=== PATIENT | female | born 1940 | race Caucasian/White ===

== ENCOUNTER 2022-07-03 16:07 | Inpatient (IN) | payer BC, MEDICAID ==
[~2022-07-03] VITALS: Ht 172.7 cm; Wt 96.6 kg
[2022-07-03 16:12] VITALS: BP_SYST 133
[2022-07-03] MEDS ORDERED: KETOROLAC TROMETHAMINE 30 MG VIAL IVP ONE (17:15)
[2022-07-03 17:20] LABS: MEAN CORPUSCULAR HEMOGLOBIN 21 pg (27-31); MEAN CORPUSCULAR HGB CONC 32 % (32-36); MEAN CORPUSCULAR VOLUME 65 fL (79.0-98.0); PLATELET COUNT (AUTO) 352 K/uL (130-430); RED BLOOD CELL COUNT(AUTO) 3.18 MIL/uL (4.2-6.2); RED CELL DISTRIBUTION WIDTH 17.1 % (9.0-15.0); WHITE BLOOD COUNT (AUTO) 7.4 K/uL (4.8-10.8)
[2022-07-03 17:23] LABS: HEMATOCRIT 20.6 % (36-48); HEMOGLOBIN 6.6 g/dL (12.0-16.0)
[2022-07-03] MEDS ORDERED: NICOTINE 14 MG/24 HR PATCH.TD24 TD SCH (17:30)
[2022-07-03 17:42] LABS: ALANINE AMINOTRANSFERASE 11 U/L (12-78); ANION GAP 10 (5-15); ASPARTATE AMINOTRANSFERASE 19 U/L (10-37); CHLORIDE 94 mmol/L (98-107); CREATININE 0.94 mg/dL (0.55-1.30); EOSINOPHILS % (MANUAL) 2 % (0-7); GLUCOSE 115 mg/dL (70-99); LYMPHOCYTES % (MANUAL) 15 % (20-46); MONOCYTES % (MANUAL) 7 % (0-11); TOTAL BILIRUBIN 0.5 mg/dL (0.0-1.0); UREA NITROGEN, BLOOD 11 mg/dL (8-21)
[2022-07-03] MEDS ORDERED: NICOTINE 14 MG/24 HR PATCH.TD24 TD ONE (17:45)
[2022-07-03] MEDS ORDERED: LEVO25TA7 PO (19:34)
[2022-07-03] MEDS ORDERED: TRAM50TA2 PO (19:34)
[2022-07-03] MEDS ORDERED: ISOS30TA85 PO (19:39)
[2022-07-03] MEDS ORDERED: BENA-6 PO (19:39)
[2022-07-03] MEDS ORDERED: LEVO50TA8 PO (19:39)
[2022-07-03] MEDS ORDERED: PANT40TA45 PO (19:39)
[2022-07-03] MEDS ORDERED: TEMA15CA PO (19:39)
[2022-07-03 21:58] VITALS: BP_SYST 131
[2022-07-03] MEDS ORDERED: CARVEDILOL 3.125 MG TABLET (COREG) PO ONE (22:18)
[2022-07-04] MEDS ORDERED: ACETAMINOPHEN 325 MG TABLET PO ONE (00:15)
[2022-07-04] MEDS ORDERED: DIPHENHYDRAMINE INJ 50 MG/ML VIAL IVP ONE (00:15)
[2022-07-04 07:27] LABS: BASOPHILS # (AUTO) 0.1 K/uL (0.0-0.2); BASOPHILS % (AUTO) 0.9 % (0.0-2.0); EOSINOPHILS # (AUTO) 0.1 K/uL (0.0-0.4); EOSINOPHILS % (AUTO) 1.2 % (0.0-4.0); HEMATOCRIT 26.4 % (36-48); HEMOGLOBIN 8.3 g/dL (12.0-16.0); LYMPHOCYTES # (AUTO) 0.6 K/uL (1.0-5.5); LYMPHOCYTES % (AUTO) 9.2 % (20.5-51.5); MEAN CORPUSCULAR HEMOGLOBIN 21 pg (27-31); MEAN CORPUSCULAR HGB CONC 31 % (32-36); MEAN CORPUSCULAR VOLUME 68 fL (79.0-98.0); MONOCYTES # (AUTO) 0.7 K/uL (0.0-1.0); NEUTROPHILS # (AUTO) 5.4 K/uL (1.8-7.7); NEUTROPHILS % (AUTO) 78.7 % (40.0-70.0); PLATELET COUNT (AUTO) 316 K/uL (130-430); RED BLOOD CELL COUNT(AUTO) 3.86 MIL/uL (4.2-6.2); RED CELL DISTRIBUTION WIDTH 18.6 % (9.0-15.0)
[2022-07-04 07:44] LABS: WHITE BLOOD COUNT (AUTO) 6.9 K/uL (4.8-10.8)
[2022-07-04 07:45] LABS: ALANINE AMINOTRANSFERASE 11 U/L (12-78); ALBUMIN 3.1 g/dL (3.4-4.8); ANION GAP 9 (5-15); ASPARTATE AMINOTRANSFERASE 22 U/L (10-37); CALCIUM 8.1 mg/dL (8.4-11.0); CHLORIDE 95 mmol/L (98-107); CREATININE 1.09 mg/dL (0.55-1.30); GLUCOSE 120 mg/dL (70-99); UREA NITROGEN, BLOOD 15 mg/dL (8-21)
[2022-07-04 07:59] VITALS: BP_SYST 136
[2022-07-04] MEDS ORDERED: CARVEDILOL 3.125 MG TABLET (COREG) PO SCH (09:00)
[2022-07-04] MEDS: KETOROLAC TROMETHAMINE 15 MG VIAL IVP PRN (10:27)
[2022-07-04 12:00] VITALS: BP_SYST 131
[2022-07-04] MEDS: traMADol HCL HCL 50 MG TABLET (ULTRAM) PO PRN (15:12)
[2022-07-04] MEDS ORDERED: LORazepam 2 MG/ML VIAL IVP ONE (15:15)
[2022-07-04 18:22] VITALS: BP_SYST 127
[2022-07-04] MEDS ORDERED: ONDANSETRON HCL 4 MG/2 ML VIAL ONE (18:22)
[2022-07-04] MEDS: TEMAZEPAM 15 MG CAPSULE PO PRN (18:27)
[2022-07-04 20:30] VITALS: BP_SYST 120
[2022-07-04] MEDS: PREGABALIN 25 MG CAPSULE (LYRICA) PO SCH (20:55)
[2022-07-04] MEDS: METOPROLOL TARTRATE 25 MG TABLET PO SCH (20:56)
[2022-07-05 01:39] VITALS: BP_SYST 130
[2022-07-05] MEDS: traMADol HCL HCL 50 MG TABLET (ULTRAM) PO PRN ×2 (05:30→20:41)
[2022-07-05] MEDS: LEVOTHYROXINE SODIUM 0.05 MG TABLET PO SCH (06:41)
[2022-07-05 07:02] LABS: BASOPHILS # (AUTO) 0.1 K/uL (0.0-0.2); BASOPHILS % (AUTO) 1.1 % (0.0-2.0); EOSINOPHILS # (AUTO) 0.1 K/uL (0.0-0.4); EOSINOPHILS % (AUTO) 0.8 % (0.0-4.0); HEMOGLOBIN 7.8 g/dL (12.0-16.0); LYMPHOCYTES # (AUTO) 0.9 K/uL (1.0-5.5); LYMPHOCYTES % (AUTO) 12.2 % (20.5-51.5); MEAN CORPUSCULAR HEMOGLOBIN 21 pg (27-31); MEAN CORPUSCULAR HGB CONC 31 % (32-36); MEAN CORPUSCULAR VOLUME 68 fL (79.0-98.0); MONOCYTES # (AUTO) 0.8 K/uL (0.0-1.0); NEUTROPHILS # (AUTO) 5.6 K/uL (1.8-7.7); NEUTROPHILS % (AUTO) 74.9 % (40.0-70.0); PLATELET COUNT (AUTO) 333 K/uL (130-430); RED BLOOD CELL COUNT(AUTO) 3.68 MIL/uL (4.2-6.2); RED CELL DISTRIBUTION WIDTH 19.1 % (9.0-15.0); WHITE BLOOD COUNT (AUTO) 7.5 K/uL (4.8-10.8)
[2022-07-05 07:21] LABS: ANION GAP 9 (5-15); CALCIUM 8.3 mg/dL (8.4-11.0); CHLORIDE 94 mmol/L (98-107); CREATININE 1.13 mg/dL (0.55-1.30); GLUCOSE 103 mg/dL (70-99); UREA NITROGEN, BLOOD 21 mg/dL (8-21)
[2022-07-05 07:49] LABS: TOTAL IRON BIND. CAPACITY 370 ug/dL (250-450)
[2022-07-05] MEDS: DULoxetine HCL 20 MG CAPSULE.DR PO SCH (09:00)
[2022-07-05] MEDS ORDERED: BENAZEPRIL HCL 20 MG TABLET (LOTENSIN) PO SCH (09:00)
[2022-07-05 09:02] VITALS: BP_SYST 127
[2022-07-05] MEDS: ISOSORBIDE MONONITRATE 30 MG TAB.ER.24H PO SCH (10:00)
[2022-07-05] MEDS: METOPROLOL TARTRATE 25 MG TABLET PO SCH ×2 (10:01→20:40)
[2022-07-05] MEDS: PANTOPRAZOLE SODIUM 40 MG TAB PO SCH (10:10)
[2022-07-05] MEDS: LISINOPRIL 10 MG TABLET (PRINIVIL) PO SCH (10:11)
[2022-07-05] MEDS: PREGABALIN 25 MG CAPSULE (LYRICA) PO SCH ×2 (10:12→20:43)
[2022-07-05] MEDS: traMADol HCL HCL 50 MG TABLET (ULTRAM) PO SCH (10:13)
[2022-07-05 11:26] VITALS: BP_SYST 106
[2022-07-05] MEDS: SOD FERRIC GLUC COMPLEX/SUC 125 MG in NS 100 ML IV SCH (14:27)
[2022-07-05 16:59] VITALS: BP_SYST 122
[2022-07-05] MEDS ORDERED: NICOTINE 14 MG/24 HR PATCH.TD24 TD ONE (19:30)
[2022-07-05 20:00] VITALS: BP_SYST 136
[2022-07-05] MEDS: ONDANSETRON HCL 4 MG/2 ML VIAL IVP PRN (22:25)
[2022-07-05] MEDS: LORazepam 2 MG/ML VIAL IVP PRN (22:31)
[2022-07-06] VITALS: BP_SYST 120
[2022-07-06] MEDS: LEVOTHYROXINE SODIUM 0.05 MG TABLET PO SCH (04:00)
[2022-07-06] MEDS: KETOROLAC TROMETHAMINE 15 MG VIAL IVP PRN ×3 (05:03→21:40)
[2022-07-06 07:55] LABS: BASOPHILS # (AUTO) 0.1 K/uL (0.0-0.2); BASOPHILS % (AUTO) 0.6 % (0.0-2.0); EOSINOPHILS % (AUTO) 0.2 % (0.0-4.0); HEMOGLOBIN 8.1 g/dL (12.0-16.0); LYMPHOCYTES # (AUTO) 0.8 K/uL (1.0-5.5); LYMPHOCYTES % (AUTO) 7.6 % (20.5-51.5); MEAN CORPUSCULAR HEMOGLOBIN 22 pg (27-31); MEAN CORPUSCULAR HGB CONC 32 % (32-36); MEAN CORPUSCULAR VOLUME 69 fL (79.0-98.0); MONOCYTES # (AUTO) 1.4 K/uL (0.0-1.0); MONOCYTES % (AUTO) 13.3 % (1.7-9.3); NEUTROPHILS # (AUTO) 8.5 K/uL (1.8-7.7); PLATELET COUNT (AUTO) 305 K/uL (130-430); RED BLOOD CELL COUNT(AUTO) 3.65 MIL/uL (4.2-6.2); RED CELL DISTRIBUTION WIDTH 18.3 % (9.0-15.0); RETICULOCYTE COUNT 2.1 % (0.5-1.5); WHITE BLOOD COUNT (AUTO) 10.9 K/uL (4.8-10.8)
[2022-07-06 08:10] LABS: INR 1.2 (0.8-1.2); PROTHROMBIN TIME 11.9 SECS (9.5-12.5)
[2022-07-06 08:17] VITALS: BP_SYST 123
[2022-07-06 08:17] LABS: ALANINE AMINOTRANSFERASE 22 U/L (12-78); ALBUMIN 2.9 g/dL (3.4-4.8); ANION GAP 9 (5-15); ASPARTATE AMINOTRANSFERASE 30 U/L (10-37); CHLORIDE 95 mmol/L (98-107); CHOLESTEROL 110 mg/dL (<200); CREATININE 1.38 mg/dL (0.55-1.30); GLUCOSE 103 mg/dL (70-99); HDL CHOLESTEROL 62 mg/dL (>55); TOTAL BILIRUBIN 1.5 mg/dL (0.0-1.0); TRIGLYCERIDES 36 mg/dL (30-150); UREA NITROGEN, BLOOD 26 mg/dL (8-21)
[2022-07-06 08:19] LABS: NEUTROPHILS % (AUTO) 78.3 % (40.0-70.0)
[2022-07-06] MEDS: METOPROLOL TARTRATE 25 MG TABLET PO SCH ×2 (08:32→21:38)
[2022-07-06] MEDS: DULoxetine HCL 20 MG CAPSULE.DR PO SCH (08:32)
[2022-07-06] MEDS: ISOSORBIDE MONONITRATE 30 MG TAB.ER.24H PO SCH (08:32)
[2022-07-06] MEDS: traMADol HCL HCL 50 MG TABLET (ULTRAM) PO SCH (08:33)
[2022-07-06] MEDS: LISINOPRIL 10 MG TABLET (PRINIVIL) PO SCH (08:33)
[2022-07-06] MEDS: PANTOPRAZOLE SODIUM 40 MG TAB PO SCH (08:33)
[2022-07-06] MEDS: PREGABALIN 25 MG CAPSULE (LYRICA) PO SCH ×2 (08:33→21:37)
[2022-07-06] MEDS ORDERED: NICOTINE 14 MG/24 HR PATCH.TD24 TD SCH (09:00)
[2022-07-06] MEDS ORDERED: FUROSEMIDE 20 MG/2 ML VIAL IVP ONE ×2 (11:30→18:00)
[2022-07-06 12:00] VITALS: BP_SYST 122
[2022-07-06] MEDS: SOD FERRIC GLUC COMPLEX/SUC 125 MG in NS 100 ML IV SCH (12:16)
[2022-07-06 14:20] LABS: BASOPHILS # (AUTO) 0.1 K/uL (0.0-0.2); BASOPHILS % (AUTO) 0.7 % (0.0-2.0); EOSINOPHILS % (AUTO) 0.3 % (0.0-4.0); HEMATOCRIT 28.5 % (36-48); HEMOGLOBIN 8.9 g/dL (12.0-16.0); LYMPHOCYTES # (AUTO) 1.2 K/uL (1.0-5.5); LYMPHOCYTES % (AUTO) 10.4 % (20.5-51.5); MEAN CORPUSCULAR HEMOGLOBIN 22 pg (27-31); MEAN CORPUSCULAR HGB CONC 31 % (32-36); MEAN CORPUSCULAR VOLUME 69 fL (79.0-98.0); MONOCYTES # (AUTO) 1.3 K/uL (0.0-1.0); MONOCYTES % (AUTO) 10.5 % (1.7-9.3); NEUTROPHILS # (AUTO) 9.4 K/uL (1.8-7.7); NEUTROPHILS % (AUTO) 78.1 % (40.0-70.0); PLATELET COUNT (AUTO) 338 K/uL (130-430); RED BLOOD CELL COUNT(AUTO) 4.15 MIL/uL (4.2-6.2); RED CELL DISTRIBUTION WIDTH 18.7 % (9.0-15.0)
[2022-07-06 14:39] LABS: BILIRUBIN,URINE NEGATIVE (NEGATIVE); COLOR,URINE YELLOW (YELLOW); GLUCOSE,URINE NEGATIVE (NEGATIVE); KETONES,URINE NEGATIVE (NEGATIVE); LEUKOCYTE ESTERASE ,URINE TRACE (NEGATIVE); NITRITE, URINE NEGATIVE (NEGATIVE); PROTEIN URINE NEGATIVE (NEGATIVE); UROBILINOGEN,URINE 0.2 (0.2-1.0)
[2022-07-06 14:41] LABS: BLOOD, URINE TRACE (NEGATIVE); CLARITY/URINE SLIGHTLY HAZY (CLEAR)
[2022-07-06 14:48] LABS: BACTERIA,URINE MODERATE /HPF (None Seen)
[2022-07-06] MEDS ORDERED: SODIUM CHLORIDE 3% *HI-ALERT* 500 ML IV SCH (15:00)
[2022-07-06 16:00] VITALS: BP_SYST 121
[2022-07-06 18:42] LABS: ANION GAP 9 (5-15); CALCIUM 7.9 mg/dL (8.4-11.0); CHLORIDE 97 mmol/L (98-107); CREATININE 1.54 mg/dL (0.55-1.30); GLUCOSE 117 mg/dL (70-99); UREA NITROGEN, BLOOD 28 mg/dL (8-21)
[2022-07-06 20:00] VITALS: BP_SYST 111
[2022-07-06] MEDS: TEMAZEPAM 15 MG CAPSULE PO PRN (21:37)
[2022-07-06] MEDS: NICOTINE 14 MG/24 HR PATCH.TD24 TD SCH (21:38)
[2022-07-06 22:12] LABS: ANION GAP 10 (5-15); CHLORIDE 98 mmol/L (98-107); CREATININE 1.51 mg/dL (0.55-1.30); GLUCOSE 144 mg/dL (70-99); UREA NITROGEN, BLOOD 29 mg/dL (8-21)
[2022-07-07] MEDS: LORazepam 2 MG/ML VIAL IVP PRN (01:44)
[2022-07-07 02:13] VITALS: BP_SYST 97
[2022-07-07] MEDS: LEVOTHYROXINE SODIUM 0.05 MG TABLET PO SCH (06:32)
[2022-07-07 07:13] LABS: BASOPHILS # (AUTO) 0.1 K/uL (0.0-0.2); BASOPHILS % (AUTO) 0.7 % (0.0-2.0); EOSINOPHILS # (AUTO) 0.2 K/uL (0.0-0.4); EOSINOPHILS % (AUTO) 1.9 % (0.0-4.0); HEMATOCRIT 26.1 % (36-48); HEMOGLOBIN 8.2 g/dL (12.0-16.0); LYMPHOCYTES # (AUTO) 1.2 K/uL (1.0-5.5); LYMPHOCYTES % (AUTO) 11.5 % (20.5-51.5); MEAN CORPUSCULAR HEMOGLOBIN 22 pg (27-31); MEAN CORPUSCULAR HGB CONC 31 % (32-36); MEAN CORPUSCULAR VOLUME 70 fL (79.0-98.0); MONOCYTES # (AUTO) 1.5 K/uL (0.0-1.0); MONOCYTES % (AUTO) 14.9 % (1.7-9.3); NEUTROPHILS # (AUTO) 7.3 K/uL (1.8-7.7); PLATELET COUNT (AUTO) 334 K/uL (130-430); RED BLOOD CELL COUNT(AUTO) 3.75 MIL/uL (4.2-6.2); RED CELL DISTRIBUTION WIDTH 18.8 % (9.0-15.0); WHITE BLOOD COUNT (AUTO) 10.2 K/uL (4.8-10.8)
[2022-07-07 07:38] LABS: ANION GAP 10 (5-15); CALCIUM 7.9 mg/dL (8.4-11.0); CHLORIDE 103 mmol/L (98-107); CREATININE 1.47 mg/dL (0.55-1.30); GLUCOSE 113 mg/dL (70-99); UREA NITROGEN, BLOOD 29 mg/dL (8-21)
[2022-07-07] MEDS: DULoxetine HCL 20 MG CAPSULE.DR PO SCH (09:00)
[2022-07-07] MEDS: traMADol HCL HCL 50 MG TABLET (ULTRAM) PO SCH (09:28)
[2022-07-07] MEDS: PREGABALIN 25 MG CAPSULE (LYRICA) PO SCH ×2 (09:28→21:09)
[2022-07-07] MEDS: PANTOPRAZOLE SODIUM 40 MG TAB PO SCH (09:28)
[2022-07-07] MEDS: ISOSORBIDE MONONITRATE 30 MG TAB.ER.24H PO SCH (09:29)
[2022-07-07] MEDS: METOPROLOL TARTRATE 25 MG TABLET PO SCH ×2 (09:29→21:00)
[2022-07-07] MEDS: LISINOPRIL 10 MG TABLET (PRINIVIL) PO SCH (09:31)
[2022-07-07 10:07] LABS: CA 27.29 71.9 U/mL (0.0-38.6)
[2022-07-07] MEDS ORDERED: LORazepam 2 MG/ML VIAL IVP PRN (10:45)
[2022-07-07 11:46] VITALS: BP_SYST 123
[2022-07-07] MEDS: SOD FERRIC GLUC COMPLEX/SUC 125 MG in NS 100 ML IV SCH (13:00)
[2022-07-07 13:07] LABS: FOLATE (FOLIC ACID) >20.0 ng/mL (>3.0)
[2022-07-07 13:16] LABS: ANION GAP 9 (5-15); CALCIUM 8.3 mg/dL (8.4-11.0); CHLORIDE 102 mmol/L (98-107); CREATININE 1.21 mg/dL (0.55-1.30); GLUCOSE 97 mg/dL (70-99); UREA NITROGEN, BLOOD 27 mg/dL (8-21)
[2022-07-07 17:50] VITALS: BP_SYST 121
[2022-07-07 20:00] VITALS: BP_SYST 121
[2022-07-07] MEDS: traMADol HCL HCL 50 MG TABLET (ULTRAM) PO PRN (21:08)
[2022-07-07] MEDS: NICOTINE 14 MG/24 HR PATCH.TD24 TD SCH (21:22)
[2022-07-07] MEDS: TEMAZEPAM 15 MG CAPSULE PO PRN (22:56)
[2022-07-08] VITALS (9 sets, daily range): BP systolic 115–146
[2022-07-08] MEDS: traMADol HCL HCL 50 MG TABLET (ULTRAM) PO PRN (05:38)
[2022-07-08] MEDS: LEVOTHYROXINE SODIUM 0.05 MG TABLET PO SCH (06:53)
[2022-07-08] MEDS: DULoxetine HCL 20 MG CAPSULE.DR PO SCH (09:00)
[2022-07-08] MEDS: PREGABALIN 25 MG CAPSULE (LYRICA) PO SCH ×2 (09:00→20:48)
[2022-07-08] MEDS: METOPROLOL TARTRATE 25 MG TABLET PO SCH ×2 (09:00→20:48)
[2022-07-08] MEDS: PANTOPRAZOLE SODIUM 40 MG TAB PO SCH (09:00)
[2022-07-08] MEDS ORDERED: D5LR 1,000 ML IV.SOLN IV ONE (09:10)
[2022-07-08] MEDS ORDERED: ONDANSETRON HCL 4 MG/2 ML VIAL ONE (09:10)
[2022-07-08] MEDS ORDERED: CEFAZOLIN 2 GM IVPB PREMIX 50 ML IV ONE (09:10)
[2022-07-08] MEDS ORDERED: KETOROLAC TROMETHAMINE 30 MG VIAL ONE (09:10)
[2022-07-08] MEDS ORDERED: PROPOFOL 200MG/ 20ML VIAL (DIPRIVAN) IV ONE (09:10)
[2022-07-08] MEDS ORDERED: SEVOFLURANE 15 MIN GAS INH ONE (09:10)
[2022-07-08] MEDS ORDERED: DEXAMETHASONE SOD PHOSPHATE 4 MG/ML VIAL ONE (09:10)
[2022-07-08] MEDS ORDERED: NS IRRIG SOLN 1000 ML IR ONE (09:10)
[2022-07-08] MEDS ORDERED: KETOROLAC TROMETHAMINE 30 MG VIAL IVP PRN (09:30)
[2022-07-08] MEDS ORDERED: HYDROmorphone 1 MG/ML INJ. CARTRIDGE IVP PRN (09:30)
[2022-07-08] MEDS ORDERED: ACETAMINOPHEN I.V. 1000 MG 100 ML IV ONE ×2 (09:30→10:30)
[2022-07-08] MEDS ORDERED: ONDANSETRON HCL 4 MG/2 ML VIAL IVP PRN (09:30)
[2022-07-08] MEDS ORDERED: METOCLOPRAMIDE HCL 10 MG/2 ML VIAL IVP PRN (09:30)
[2022-07-08] MEDS ORDERED: NALOXONE HCL 0.4 MG/ML AMP (NARCAN) IVP PRN (09:30)
[2022-07-08] MEDS ORDERED: MORPHINE 4 MG INJ. 4 MG/ML VIAL IVP PRN (10:30)
[2022-07-08] MEDS: traMADol HCL HCL 50 MG TABLET (ULTRAM) PO SCH (15:49)
[2022-07-08] MEDS: HYDROcodone/ACETAMIN 5-325 MG TAB (NORCO/ VICODIN) PO PRN (15:50)
[2022-07-08] MEDS: ISOSORBIDE MONONITRATE 30 MG TAB.ER.24H PO SCH (15:51)
[2022-07-08] MEDS: LISINOPRIL 10 MG TABLET (PRINIVIL) PO SCH (15:51)
[2022-07-08] MEDS: ceFAZolin SODIUM 1 GM in D5W 50 ML IV SCH ×2 (18:28→22:05)
[2022-07-08] MEDS: NICOTINE 14 MG/24 HR PATCH.TD24 TD SCH (20:49)
[2022-07-09 00:01] VITALS: BP_SYST 128
[2022-07-09] MEDS: TEMAZEPAM 15 MG CAPSULE PO PRN ×2 (00:24→20:31)
[2022-07-09] MEDS: HYDROcodone/ACETAMIN 5-325 MG TAB (NORCO/ VICODIN) PO PRN ×2 (00:25→13:41)
[2022-07-09] MEDS: ceFAZolin SODIUM 1 GM in D5W 50 ML IV SCH ×3 (06:37→21:29)
[2022-07-09] MEDS: LEVOTHYROXINE SODIUM 0.05 MG TABLET PO SCH (06:44)
[2022-07-09 07:08] LABS: BASOPHILS % (AUTO) 0.4 % (0.0-2.0); EOSINOPHILS % (AUTO) 0.1 % (0.0-4.0); HEMATOCRIT 28.1 % (36-48); HEMOGLOBIN 8.8 g/dL (12.0-16.0); LYMPHOCYTES # (AUTO) 0.8 K/uL (1.0-5.5); LYMPHOCYTES % (AUTO) 8.3 % (20.5-51.5); MEAN CORPUSCULAR HEMOGLOBIN 23 pg (27-31); MEAN CORPUSCULAR HGB CONC 31 % (32-36); MEAN CORPUSCULAR VOLUME 72 fL (79.0-98.0); MONOCYTES # (AUTO) 0.7 K/uL (0.0-1.0); MONOCYTES % (AUTO) 7.4 % (1.7-9.3); NEUTROPHILS # (AUTO) 7.9 K/uL (1.8-7.7); NEUTROPHILS % (AUTO) 83.8 % (40.0-70.0); PLATELET COUNT (AUTO) 392 K/uL (130-430); RED CELL DISTRIBUTION WIDTH 20.9 % (9.0-15.0); WHITE BLOOD COUNT (AUTO) 9.4 K/uL (4.8-10.8)
[2022-07-09 08:00] VITALS: BP_SYST 118
[2022-07-09 08:11] LABS: ANION GAP 6 (5-15); CALCIUM 8.2 mg/dL (8.4-11.0); CHLORIDE 100 mmol/L (98-107); CREATININE 1.13 mg/dL (0.55-1.30); GLUCOSE 125 mg/dL (70-99); UREA NITROGEN, BLOOD 27 mg/dL (8-21)
[2022-07-09] MEDS: ENOXAPARIN SODIUM 40 MG/0.4 ML SYRINGE SUBCUT SCH (10:35)
[2022-07-09] MEDS: LISINOPRIL 10 MG TABLET (PRINIVIL) PO SCH (10:36)
[2022-07-09] MEDS: PANTOPRAZOLE SODIUM 40 MG TAB PO SCH (10:37)
[2022-07-09] MEDS: PREGABALIN 25 MG CAPSULE (LYRICA) PO SCH ×2 (10:37→20:29)
[2022-07-09] MEDS: ISOSORBIDE MONONITRATE 30 MG TAB.ER.24H PO SCH (10:37)
[2022-07-09] MEDS: METOPROLOL TARTRATE 25 MG TABLET PO SCH ×2 (10:37→20:30)
[2022-07-09] MEDS: traMADol HCL HCL 50 MG TABLET (ULTRAM) PO SCH (10:39)
[2022-07-09] MEDS: DULoxetine HCL 20 MG CAPSULE.DR PO SCH (10:42)
[2022-07-09 11:42] VITALS: BP_SYST 107
[2022-07-09] MEDS ORDERED: SODIUM POLYSTYRENE SULFONATE 15 GM/60 ML UDBTL PO ONE (11:45)
[2022-07-09] MEDS ORDERED: BISACODYL 5 MG TABLET.DR (DULCOLAX) PO PRN (11:45)
[2022-07-09] MEDS ORDERED: MILK OF MAGNESIA 30 ML UDC PO ONE (11:45)
[2022-07-09] MEDS: SOD FERRIC GLUC COMPLEX/SUC 125 MG in NS 100 ML IV SCH (13:30)
[2022-07-09] MEDS: ONDANSETRON HCL 4 MG/2 ML VIAL IVP PRN (16:34)
[2022-07-09 17:44] VITALS: BP_SYST 142
[2022-07-09] MEDS: NICOTINE 14 MG/24 HR PATCH.TD24 TD SCH (20:32)
[2022-07-10] MEDS: ceFAZolin SODIUM 1 GM in D5W 50 ML IV SCH ×3 (06:15→21:06)
[2022-07-10] MEDS: LEVOTHYROXINE SODIUM 0.05 MG TABLET PO SCH (06:15)
[2022-07-10 07:41] LABS: ALANINE AMINOTRANSFERASE 24 U/L (12-78); ALBUMIN 2.5 g/dL (3.4-4.8); ANION GAP 8 (5-15); ASPARTATE AMINOTRANSFERASE 43 U/L (10-37); CALCIUM 7.9 mg/dL (8.4-11.0); CHLORIDE 102 mmol/L (98-107); CREATININE 1.18 mg/dL (0.55-1.30); GLUCOSE 114 mg/dL (70-99); TOTAL BILIRUBIN 0.5 mg/dL (0.0-1.0); UREA NITROGEN, BLOOD 25 mg/dL (8-21)
[2022-07-10 08:00] VITALS: BP_SYST 119
[2022-07-10] MEDS: PREGABALIN 25 MG CAPSULE (LYRICA) PO SCH ×2 (09:39→20:58)
[2022-07-10] MEDS: METOPROLOL TARTRATE 25 MG TABLET PO SCH ×2 (09:40→20:55)
[2022-07-10] MEDS: PANTOPRAZOLE SODIUM 40 MG TAB PO SCH (09:41)
[2022-07-10] MEDS: traMADol HCL HCL 50 MG TABLET (ULTRAM) PO SCH (09:43)
[2022-07-10] MEDS: ISOSORBIDE MONONITRATE 30 MG TAB.ER.24H PO SCH (09:44)
[2022-07-10] MEDS: ENOXAPARIN SODIUM 40 MG/0.4 ML SYRINGE SUBCUT SCH (09:45)
[2022-07-10] MEDS: DULoxetine HCL 20 MG CAPSULE.DR PO SCH (09:50)
[2022-07-10 12:00] VITALS: BP_SYST 104
[2022-07-10] MEDS: SOD FERRIC GLUC COMPLEX/SUC 125 MG in NS 100 ML IV SCH (13:29)
[2022-07-10] MEDS ORDERED: NICO-680 TD (13:35)
[2022-07-10] MEDS ORDERED: LYR25 PO (13:35)
[2022-07-10] MEDS ORDERED: DULO20CA PO (13:35)
[2022-07-10] MEDS ORDERED: FERR-31 PO (13:35)
[2022-07-10] MEDS ORDERED: METO25TA6 PO (13:35)
[2022-07-10 16:00] VITALS: BP_SYST 95
[2022-07-10] MEDS: NICOTINE 14 MG/24 HR PATCH.TD24 TD SCH (20:54)
[2022-07-10] MEDS: TEMAZEPAM 15 MG CAPSULE PO PRN (21:04)
[2022-07-11 00:56] VITALS: BP_SYST 112
[2022-07-11] MEDS: ceFAZolin SODIUM 1 GM in D5W 50 ML IV SCH ×3 (06:34→22:05)
[2022-07-11] MEDS: LEVOTHYROXINE SODIUM 0.05 MG TABLET PO SCH (06:34)
[2022-07-11 08:00] VITALS: BP_SYST 121
[2022-07-11 08:00] LABS: BASOPHILS # (AUTO) 0.1 K/uL (0.0-0.2); BASOPHILS % (AUTO) 0.6 % (0.0-2.0); EOSINOPHILS # (AUTO) 0.1 K/uL (0.0-0.4); EOSINOPHILS % (AUTO) 1.3 % (0.0-4.0); HEMATOCRIT 28.7 % (36-48); HEMOGLOBIN 9.1 g/dL (12.0-16.0); LYMPHOCYTES % (AUTO) 9.6 % (20.5-51.5); MEAN CORPUSCULAR HEMOGLOBIN 23 pg (27-31); MEAN CORPUSCULAR HGB CONC 32 % (32-36); MEAN CORPUSCULAR VOLUME 72 fL (79.0-98.0); MONOCYTES # (AUTO) 0.9 K/uL (0.0-1.0); MONOCYTES % (AUTO) 8.4 % (1.7-9.3); NEUTROPHILS # (AUTO) 8.4 K/uL (1.8-7.7); NEUTROPHILS % (AUTO) 80.1 % (40.0-70.0); PLATELET COUNT (AUTO) 388 K/uL (130-430); RED BLOOD CELL COUNT(AUTO) 3.99 MIL/uL (4.2-6.2); RED CELL DISTRIBUTION WIDTH 23.8 % (9.0-15.0); WHITE BLOOD COUNT (AUTO) 10.4 K/uL (4.8-10.8)
[2022-07-11 08:09] LABS: ANION GAP 8 (5-15); CALCIUM 8.3 mg/dL (8.4-11.0); CHLORIDE 102 mmol/L (98-107); CREATININE 1.04 mg/dL (0.55-1.30); GLUCOSE 88 mg/dL (70-99); UREA NITROGEN, BLOOD 26 mg/dL (8-21)
[2022-07-11] MEDS: PANTOPRAZOLE SODIUM 40 MG TAB PO SCH (08:44)
[2022-07-11] MEDS: METOPROLOL TARTRATE 25 MG TABLET PO SCH ×2 (08:45→21:00)
[2022-07-11] MEDS: ISOSORBIDE MONONITRATE 30 MG TAB.ER.24H PO SCH (08:45)
[2022-07-11] MEDS: PREGABALIN 25 MG CAPSULE (LYRICA) PO SCH ×2 (08:46→21:09)
[2022-07-11] MEDS: DULoxetine HCL 20 MG CAPSULE.DR PO SCH (08:46)
[2022-07-11] MEDS: traMADol HCL HCL 50 MG TABLET (ULTRAM) PO SCH (08:47)
[2022-07-11] MEDS: ENOXAPARIN SODIUM 40 MG/0.4 ML SYRINGE SUBCUT SCH (08:48)
[2022-07-11 12:00] VITALS: BP_SYST 132
[2022-07-11] MEDS: SOD FERRIC GLUC COMPLEX/SUC 125 MG in NS 100 ML IV SCH (13:28)
[2022-07-11 16:00] VITALS: BP_SYST 133
[2022-07-11 20:00] VITALS: BP_SYST 105
[2022-07-11] MEDS: NICOTINE 14 MG/24 HR PATCH.TD24 TD SCH (21:08)
[2022-07-11] MEDS: HYDROcodone/ACETAMIN 5-325 MG TAB (NORCO/ VICODIN) PO PRN (21:10)
[2022-07-11] MEDS: TEMAZEPAM 15 MG CAPSULE PO PRN (22:26)
[2022-07-12 04:46] LABS: BASOPHILS # (AUTO) 0.1 K/uL (0.0-0.2); EOSINOPHILS # (AUTO) 0.3 K/uL (0.0-0.4); EOSINOPHILS % (AUTO) 3.3 % (0.0-4.0); HEMATOCRIT 28.9 % (36-48); HEMOGLOBIN 9.2 g/dL (12.0-16.0); LYMPHOCYTES # (AUTO) 1.2 K/uL (1.0-5.5); LYMPHOCYTES % (AUTO) 15.8 % (20.5-51.5); MEAN CORPUSCULAR HEMOGLOBIN 23 pg (27-31); MEAN CORPUSCULAR HGB CONC 32 % (32-36); MEAN CORPUSCULAR VOLUME 72 fL (79.0-98.0); MONOCYTES # (AUTO) 0.8 K/uL (0.0-1.0); MONOCYTES % (AUTO) 10.9 % (1.7-9.3); NEUTROPHILS # (AUTO) 5.3 K/uL (1.8-7.7); PLATELET COUNT (AUTO) 415 K/uL (130-430); RED BLOOD CELL COUNT(AUTO) 4.04 MIL/uL (4.2-6.2); RED CELL DISTRIBUTION WIDTH 24.4 % (9.0-15.0); WHITE BLOOD COUNT (AUTO) 7.8 K/uL (4.8-10.8)
[2022-07-12 05:11] LABS: ALANINE AMINOTRANSFERASE 8 U/L (12-78); ALBUMIN 2.3 g/dL (3.4-4.8); ANION GAP 9 (5-15); ASPARTATE AMINOTRANSFERASE 18 U/L (10-37); CALCIUM 7.8 mg/dL (8.4-11.0); CHLORIDE 101 mmol/L (98-107); CREATININE 1.02 mg/dL (0.55-1.30); GLUCOSE 87 mg/dL (70-99); TOTAL BILIRUBIN 0.3 mg/dL (0.0-1.0); UREA NITROGEN, BLOOD 22 mg/dL (8-21)
[2022-07-12] MEDS: ceFAZolin SODIUM 1 GM in D5W 50 ML IV SCH ×2 (05:46→15:20)
[2022-07-12] MEDS: LEVOTHYROXINE SODIUM 0.05 MG TABLET PO SCH (05:46)
[2022-07-12 06:17] LABS: ERYTHROCYTE SEDIMENTATION RATE 38 MM/HR (0-20)
[2022-07-12] MEDS: HYDROcodone/ACETAMIN 5-325 MG TAB (NORCO/ VICODIN) PO PRN (06:28)
[2022-07-12 08:00] VITALS: BP_SYST 107; BP_SYST 140
[2022-07-12] MEDS: DULoxetine HCL 20 MG CAPSULE.DR PO SCH (10:06)
[2022-07-12] MEDS: PANTOPRAZOLE SODIUM 40 MG TAB PO SCH (10:06)
[2022-07-12] MEDS: ISOSORBIDE MONONITRATE 30 MG TAB.ER.24H PO SCH (10:06)
[2022-07-12] MEDS: ENOXAPARIN SODIUM 40 MG/0.4 ML SYRINGE SUBCUT SCH (10:07)
[2022-07-12] MEDS: PREGABALIN 25 MG CAPSULE (LYRICA) PO SCH ×2 (10:07→21:18)
[2022-07-12] MEDS: traMADol HCL HCL 50 MG TABLET (ULTRAM) PO SCH (10:07)
[2022-07-12 11:37] VITALS: BP_SYST 147
[2022-07-12] MEDS ORDERED: METOPROLOL TARTRATE 50 MG TABLET PO ONE (12:30)
[2022-07-12] MEDS: D5/0.45 NS 1,000 ML IV SCH (13:14)
[2022-07-12] MEDS: SOD FERRIC GLUC COMPLEX/SUC 125 MG in NS 100 ML IV SCH (13:15)
[2022-07-12 16:58] VITALS: BP_SYST 109
[2022-07-12 20:00] VITALS: BP_SYST 136
[2022-07-12] MEDS: MILK OF MAGNESIA 30 ML UDC PO SCH (21:16)
[2022-07-12] MEDS: NICOTINE 14 MG/24 HR PATCH.TD24 TD SCH (21:18)
[2022-07-12] MEDS: METOPROLOL TARTRATE 25 MG TABLET PO SCH (21:18)
[2022-07-13] MEDS: ceFAZolin SODIUM 1 GM in D5W 50 ML IV SCH ×3 (00:33→14:00)
[2022-07-13 02:01] VITALS: BP_SYST 148
[2022-07-13] MEDS: LEVOTHYROXINE SODIUM 0.05 MG TABLET PO SCH (07:42)
[2022-07-13 08:00] VITALS: BP_SYST 150
[2022-07-13 08:28] LABS: BASOPHILS # (AUTO) 0.1 K/uL (0.0-0.2); BASOPHILS % (AUTO) 0.9 % (0.0-2.0); EOSINOPHILS # (AUTO) 0.2 K/uL (0.0-0.4); EOSINOPHILS % (AUTO) 2.6 % (0.0-4.0); HEMATOCRIT 32.3 % (36-48); LYMPHOCYTES # (AUTO) 0.7 K/uL (1.0-5.5); LYMPHOCYTES % (AUTO) 11.8 % (20.5-51.5); MEAN CORPUSCULAR HEMOGLOBIN 23 pg (27-31); MEAN CORPUSCULAR HGB CONC 31 % (32-36); MEAN CORPUSCULAR VOLUME 73 fL (79.0-98.0); MONOCYTES # (AUTO) 0.6 K/uL (0.0-1.0); MONOCYTES % (AUTO) 9.6 % (1.7-9.3); NEUTROPHILS # (AUTO) 4.7 K/uL (1.8-7.7); NEUTROPHILS % (AUTO) 75.1 % (40.0-70.0); PLATELET COUNT (AUTO) 439 K/uL (130-430); RED BLOOD CELL COUNT(AUTO) 4.41 MIL/uL (4.2-6.2); RED CELL DISTRIBUTION WIDTH 24.3 % (9.0-15.0); WHITE BLOOD COUNT (AUTO) 6.2 K/uL (4.8-10.8)
[2022-07-13 08:43] LABS: ANION GAP 9 (5-15); CALCIUM 7.2 mg/dL (8.4-11.0); CHLORIDE 97 mmol/L (98-107); CREATININE 0.96 mg/dL (0.55-1.30); UREA NITROGEN, BLOOD 15 mg/dL (8-21)
[2022-07-13 08:56] LABS: GLUCOSE 539 mg/dL (70-99)
[2022-07-13] MEDS: MILK OF MAGNESIA 30 ML UDC PO SCH ×2 (08:56→09:00)
[2022-07-13] MEDS: METOPROLOL TARTRATE 25 MG TABLET PO SCH ×2 (08:57→19:18)
[2022-07-13] MEDS: PANTOPRAZOLE SODIUM 40 MG TAB PO SCH (08:58)
[2022-07-13] MEDS: ISOSORBIDE MONONITRATE 30 MG TAB.ER.24H PO SCH (08:59)
[2022-07-13] MEDS: traMADol HCL HCL 50 MG TABLET (ULTRAM) PO SCH (08:59)
[2022-07-13] MEDS: PREGABALIN 25 MG CAPSULE (LYRICA) PO SCH (08:59)
[2022-07-13] MEDS: ENOXAPARIN SODIUM 40 MG/0.4 ML SYRINGE SUBCUT SCH (09:00)
[2022-07-13] MEDS: ONDANSETRON HCL 4 MG/2 ML VIAL IVP PRN ×2 (09:04→17:44)
[2022-07-13] MEDS: DULoxetine HCL 20 MG CAPSULE.DR PO SCH (10:38)
[2022-07-13] MEDS: D5/0.45 NS 1,000 ML IV SCH (10:40)
[2022-07-13 12:30] VITALS: BP_SYST 127
== END 2022-07-13 21:09 | disposition home health service (06) | DRG 582 ==
LOC: SED 17:08 → SMU 19:35 → STU 21:01 → SMU 21:20 → STU 22:34 → SMU 07-06 12:06 → STU 07-08 19:47 → SMU 07-10 11:42
PROVIDERS: ADMIT Specialist; ATTEND Specialist
PROC: 30233N1 Transfusion of Nonautologous Red Blood Cells into Peripheral Vein, Percutaneous Approach (ICD-10-PCS; 2022-07-04)
PROC: 0HBU0ZX Excision of Left Breast, Open Approach, Diagnostic (ICD-10-PCS; 2022-07-08)
PROC: 0HBU0ZZ Excision of Left Breast, Open Approach (ICD-10-PCS; principal; 2022-07-08 09:10)
DX: D48.62 Neoplasm of uncertain behavior of left breast (principal); I50.41 Acute combined systolic (congestive) and diastolic (congestive) heart failure; I13.0 Hypertensive heart and chronic kidney disease with heart failure and stage 1 through stage 4 chronic kidney disease, or unspecified chronic kidney disease; E87.1 Hypo-osmolality and hyponatremia; I48.20 Chronic atrial fibrillation, unspecified; I42.9 Cardiomyopathy, unspecified; D50.9 Iron deficiency anemia, unspecified; E03.9 Hypothyroidism, unspecified; E83.51 Hypocalcemia; F32.A Depression, unspecified; K57.30 Diverticulosis of large intestine without perforation or abscess without bleeding; R16.0 Hepatomegaly, not elsewhere classified; M79.7 Fibromyalgia; G62.9 Polyneuropathy, unspecified; N18.1 Chronic kidney disease, stage 1; I25.10 Atherosclerotic heart disease of native coronary artery without angina pectoris; K21.9 Gastro-esophageal reflux disease without esophagitis; E66.01 Morbid (severe) obesity due to excess calories; R53.81 Other malaise; Z20.822 Contact with and (suspected) exposure to COVID-19; R09.02 Hypoxemia; Z79.01 Long term (current) use of anticoagulants; Z87.891 Personal history of nicotine dependence; Z90.710 Acquired absence of both cervix and uterus; Z79.899 Other long term (current) drug therapy; Z68.32 Body mass index [BMI] 32.0-32.9, adult
CPT/HCPCS: 36415; 71045; 71260-TC; 76376; 78306; 80048; 80053; 80061; 81000; 82272; 82607; 82728; 82746; 83540; 83550; 83605; 83735; 83880; 84100; 84443; 84484; 85007; 85025; 85027; 85044; 85610-TC; 85651-TC; 86140; 86300; 86886; 86900; 86901; 86920; 87040; 87081; 88307; 93005; 93306; 96374; 97110-GP; 97112-GP; 97116-GP; 97163-GP; 97530-GP; 99285; A9503; G0378; J0131; J0690; J1100; J1200; J1650; J1885; J1940; J2060; J2405; J2704; J2916; J3490; J7040; J7050; J7060; J7120; P9021; Q9967